=== PATIENT | male | born 1965 | race Caucasian/White ===

== ENCOUNTER 2021-11-13 14:35 | Emergency (ER) | payer SELFPAY ==
[~2021-11-13] VITALS: Ht 185.4 cm; Wt 127.0 kg
[2021-11-13 14:47] VITALS: BP 188/127
[2021-11-13] MEDS ORDERED: amoxicillin 250mg capsule PO ONE (15:40)
[2021-11-13] MEDS ORDERED: ketorolac trometh. 30mg/ml inj. IM ONE (15:40)
[2021-11-13] MEDS ORDERED: AMOX-100 PO (15:43)
[2021-11-13] MEDS ORDERED: IBUP-1986 PO (15:43)
--- NOTE | 2021-11-13 16:00 | NUR ---
po med given im given
== END 2021-11-13 16:02 | disposition home or self-care (01) ==
LOC: ER 14:36
DX: K08.89 Other specified disorders of teeth and supporting structures (principal); Z79.2 Long term (current) use of antibiotics; Z79.899 Other long term (current) drug therapy; Z98.818 Other dental procedure status
CPT/HCPCS: 96372; 99283; J1885